=== PATIENT | female | born 1960 | race Caucasian/White ===

== ENCOUNTER 2016-12-21 11:32 | Inpatient (IN) | payer MEDICARE ==
[~2016-12-21] VITALS: Ht 165.1 cm; Wt 56.0 kg
--- NOTE | ~2016-12-21 | EKG ---
PATIENT: JOSE SMALL UNIT #: [id number] Ventricular Rate: 92 BPM Atrial Rate: 92 BPM P-R Interval: 126 ms QRS Duration: 78 ms Q-T Interval: 338 ms QTC Calculation(Bezet): 417 ms P [place]: 80 degrees Calculated R [place]: -53 degrees Calculated T [place]: 91 degrees Diagnosis Line: Normal sinus rhythm Diagnosis Line: Left axis deviation Diagnosis Line: Nonspecific ST and T wave abnormality Diagnosis Line: Abnormal ECG Diagnosis Line: When compared with ECG of 31-MAR-2014 19:29, Diagnosis Line: Nonspecific T wave abnormality now evident in Diagnosis Line: Inferior leads Diagnosis Line: Confirmed by NATALYA SUÁREZ MD ([id number]) on Diagnosis Line: 12/21/2016 5:11:32 PM INTERPRETING MD: KAMINI DOLL
--- NOTE | ~2016-12-21 | CR72 ---
[facility] A Service of [facility] & [facility] RADIOLOGY TEXT RESULTS PATIENT: JOSE SMALL LOCATION: [facility] : 60 UNIT #: [id number] AGE: [address]: Sukhdev Ribeiro MD SEX: F ORDER DR: [id number] [facility] [address] [place], [place] [address] [id number] P MR#: [id number] Acc #: [id number] NAME: JOSE SMALL : 1960 SEX: F STUDY DATE/TIME: 12/21/2016 13:39 UNIT: [facility] ROOM: STUDY DESCRIPTION: CR Chest Single View Portable Attending Physician: Sukhdev Ribeiro M.D. Ordering Physician: Sukhdev Ribeiro M.D. Primary Care Physician: Shelli Hdz M.D. MEDICAL IMAGING REPORT This report is preliminary unless electronic signature is present EXAM Chest portable 12/21/2016 1339 hours. HISTORY 56-year-old woman with complaint of cough and shortness of air today. History of COPD and coronary artery disease COMPARISON 08/18/2016 FINDINGS Portable upright chest demonstrates normal heart size. There is atherosclerotic change of the aorta with normal aortic contours. There are calcified granulomatous nodes at the sandra. There is emphysematous change in the lungs. There is new airspace density in the right lower lobe consistent with pneumonia. This is contiguous with a somewhat nodular-appearing area in the right midlung measuring up to 1.4 cm. This is felt likely to represent airspace change rather than a developing nodule or mass. Followup chest radiographs post treatment is recommended. IMPRESSION 1. There is emphysematous change with new diffuse right lower lobe airspace change most consistent with pneumonia. 2. There is a 1.4 cm slightly poorly defined airspace nodule in the right mid lung at the superior margin of the area of pneumonia. This is felt likely to represent infection but followup chest radiographs post treatment to reassess this nodular area is recommended as an underlying nodule or mass cannot be excluded. STAT * RESULT Dictated by... [facility] A Service of [facility] & [facility] RADIOLOGY TEXT RESULTS [facility]: [id number] [birth year] UNIT #: [id number] AGE: [address]: Sukhdev Ribeiro MD SEX: F ORDER DR: Adilia Siegel M.D. THIS IS AN ELECTRONICALLY VERIFIED REPORT Adilia Siegel M.D. at 12/21/2016 2:35 PM BRODY/betsy TD: 12/21/2016 14:04 JOB #: [id number] MEDICAL IMAGING REPORT Page 1 of 1 COPY
--- NOTE | ~2016-12-21 | CT4 ---
[facility] A Service of [facility] & [facility] RADIOLOGY TEXT RESULTS PATIENT: JOSE SMALL LOCATION: [facility] 323- : 60 UNIT #: [id number] AGE: [address]: Nichol Hills MD SEX: F ORDER DR: [id number] [facility] [address] [place], [place] [address] [id number] I MR#: [id number] Acc #: [id number] NAME: JOSE SMALL : 1960 SEX: F STUDY DATE/TIME: 12/21/2016 16:19 UNIT: A U ROOM: [facility] STUDY DESCRIPTION: CT Abd and Pelv Wo Cont Attending Physician: Reyna Ribeiro M.D. Ordering Physician: Sukhdev Ribeiro M.D. Primary Care Physician: Shelli Hdz M.D. MEDICAL IMAGING REPORT This report is preliminary unless electronic signature is present EXAM CT abdomen and pelvis 12/21/2016. HISTORY Pain. Patient had a stroke 2001. Unable to raise left arm above head. This CT exam was performed with one or more of the following radiation dose reduction techniques: automatic exposure control, adjustment of mA and/or kV according to patient size, and iterative reconstruction. CT of the abdomen and pelvis performed without administration of oral or intravascular contrast. Please see today's dedicated CT of the chest for full discussion of findings above the diaphragm. Lung bases show emphysema. Airspace disease at the bilateral lung bases significantly more pronounced on the right than the left. Appearance suggests bibasilar pneumonia, right greater than left. Given distribution, correlate with any clinical concern for aspiration. The visualized inferior heart and pericardium are unremarkable. Liver, gallbladder, spleen, pancreas, adrenal glands unremarkable. Right kidney and ureter unremarkable. There is a punctate nonobstructing calculus in the mid left kidney. There are renovascular calcifications in the left hilar region. No left-sided hydronephrosis, hydroureter, ureteral calculus or secondary sign of recent stone passage. CT PELVIS: No inguinal adenopathy. The urinary bladder, uterus, adnexal regions show no acute abnormality. There is no free fluid in the pelvis. No pelvic or retroperitoneal adenopathy. Distal esophagus, stomach, small bowel, appendix unremarkable. Colon shows uncomplicated descending and sigmoid colon diverticulosis. Atherosclerotic arterial calcifications. No aneurysm. No acute-appearing bony abnormality. IMPRESSION [facility]. [facility] A Service of [facility] & [facility] RADIOLOGY TEXT RESULTS PATIENT: JOSE SMALL LOCATION: A 323- : 60 UNIT #: [id number] AGE: [address]: Nichol Hills MD SEX: F ORDER DR: 1. There is no clearly acute abnormality within the abdomen or pelvis. The patient does have a punctate sand-like nonobstructing calculus in the mid left kidney. There are renovascular calcifications elsewhere. No hydronephrosis or secondary sign of recent stone passage. 2. Gallbladder, pancreas, appendix normal. 3. Uncomplicated distal colonic diverticulosis. 4. Meters adnexal regions unremarkable. 5. Bibasilar airspace disease more pronounced on the right than the left most consistent with bibasilar pneumonia right greater than left. Given distribution, correlate with any clinical concern for aspiration. Followup to complete radiographic resolution is recommended. 6. Underlying emphysema. 7. See remainder of incidental findings in body of report above. Dictated by... Clayton Gray M.D. THIS IS AN ELECTRONICALLY VERIFIED REPORT Clayton Gray M.D. at 12/22/2016 6:04 PM YVONNE/justus TD: 12/22/2016 04:18 JOB #: [id number] MEDICAL IMAGING REPORT Page 1 of 1 COPY
--- NOTE | ~2016-12-21 | CT16 ---
[facility] A Service of [facility] & [facility] RADIOLOGY TEXT RESULTS PATIENT: JOSE SMALL LOCATION: [facility] 323- : 60 UNIT #: [id number] AGE: [address]: APOORVA RIBEIRO MD SEX: F ORDER DR: [id number] [facility] [address] [place], [place] [address] [id number] I MR#: [id number] Acc #: [id number] NAME: JOSE SMALL : 1960 SEX: F STUDY DATE/TIME: 12/21/2016 16:32 [facility] STUDY DESCRIPTION: CT Angio Chest for PE Attending Physician: Apoorva Ribeiro M.D. Ordering Physician: Sukhdev Ribeiro M.D. Primary Care Physician: Shelli Hdz M.D. MEDICAL IMAGING REPORT This report is preliminary unless electronic signature is present EXAM CT chest with contrast, PE protocol. INDICATIONS Shortness of breath since this morning. Elevated D-dimer. TECHNIQUE CT scan of the chest was performed following the administration of IV contrast, using the pulmonary embolism protocol. Coronal and sagittal reformatted images were obtained. This CT exam was performed with one or more of the following radiation dose reduction techniques: Automatic exposure control, adjustment of mA and/or kV according to patient size, and iterative reconstruction. Comparison is made with 03/31/2014. FINDINGS Motion artifact does limit the exam. The distal segmental and subsegmental arteries in the lower lobes are not adequately visualized due to motion artifact. Within the limitations of the study, there is no evidence for pulmonary embolism. There are bilateral lower lobe consolidations right greater than left, most consistent with pneumonia. Follow up to clearing is recommended. Emphysema. There is increasing density in the right apex region, but this is associated with traction bronchiectasis and is felt to probably represent scarring. Attention to this area on followup CT is recommended, however to ensure its stability. There is a mildly prominent subcarinal lymph node and there is also a mildly prominent hilar lymph node on the right. These are likely reactive, given the findings in the lungs. There is no pleural effusion. Limited imaging of the upper abdomen is unremarkable. The bone windows are unremarkable. IMPRESSION 1. Motion artifact limited study, which limits evaluation of the distal segmental and subsegmental branches of the lower lobes. [facility] A Service of [facility] RADIOLOGY TEXT RESULTS PATIENT: JOSE SMALL LOCATION: [facility] 323-01 : 60 UNIT #: [id number] AGE: [address]: APOORVA RIBEIRO MD SEX: F ORDER DR: Within the limitations of the study, there is no evidence for pulmonary embolism. 2. Bilateral lower lobe parenchymal consolidations right greater than left, most consistent with pneumonia. 3. Emphysema. 4. Increasing density and bronchiectasis in the right apex felt to probably represent scarring; however, attention on followup studies to this area is recommended to ensure stability. 5. I would recommend a follow-up chest CT in 2-3 months to document clearing of the lower lobe pneumonias. Dictated by... London Bucio M.D. THIS IS AN ELECTRONICALLY VERIFIED REPORT London Bucio M.D. at 12/22/2016 7:10 AM GABRIEL/shreya TD: 12/22/2016 02:47 JOB #: [id number] MEDICAL IMAGING REPORT Page 1 of 1 COPY
--- NOTE | ~2016-12-21 | HP ---
Unit #: [id number] #: [id number] Patient: JOSE SMALL [id number] [address] [address] [id number] I MR#: [id number] NAME: JOSE SMALL. ROOM: 74192 Age: 56 Sex: F Admission Date: 12/21/2016 : 1960 Attending Physician: Apoorva Ribeiro M.D. Primary Care Physician: Shelli Hdz M.D. HISTORY AND PHYSICAL CHIEF COMPLAINT Right flank pain since this morning. HISTORY OF PRESENT ILLNESS The patient is a 56-year-old female with a history of COPD, coronary artery disease, and history of CVA, brought to the emergency room complaining of right flank pain since this morning. The patient stated that patient woke up this morning to go to the bathroom and noted spasms and right flank pain. The patient had a workup in the emergency room and was found to have a right lower lobe pneumonia. The patient stated that patient has been coughing for the last three days, yellowish mucus in color, and also positive for shortness of breath. The patient stopped smoking two packs per day for the last two years. Patient denies any fevers, chills, nausea, or vomiting. The patient is being admitted for the above reasons. PAST MEDICAL HISTORY 1. Coronary artery disease. 2. Chronic obstructive pulmonary disease. 3. Cerebrovascular accident. 4. Skin cancer. PAST SURGICAL HISTORY 1. Skin cancer. 2. Left thumb repair. 3. Tubal ligation. HOME MEDICATIONS 1. Plavix. 2. Cardizem. 3. Imdur. 4. Singulair. 5. Breo. 6. Pravachol. 7. Lexapro. 8. ProAir. ALLERGIES Penicillin and codeine. SOCIAL HISTORY Quit smoking two years ago. Denies alcohol or any illicit drug abuse. Unit #: [id number] #: [id number] Patient: JOSE SMALL FAMILY HISTORY Father underwent angioplasty and stent insertion in his late 60s. REVIEW OF SYSTEMS Positive for shortness of breath, positive for cough, and positive for flank pain. Denies any fevers, chills, nausea, or vomiting, and denies any chest pain. Other systems were reviewed and are negative. PHYSICAL EXAMINATION GENERAL: Patient is lying in bed not in acute distress. VITAL SIGNS: Temperature 97.1, pulse 99, respiratory rate 24, blood pressure 99/56, and saturating 99% on 2 liters. HEENT: Head atraumatic, normocephalic. Pupils equal, round, and reactive to light and accommodation. Dry mucous membranes. NECK: Supple. LUNGS: Decreased air entry at the bases. Positive for rhonchi and wheezing. HEART: Regular rate and rhythm. ABDOMEN: Soft. Positive bowel sounds. EXTREMITIES: No cyanosis, no clubbing. NEUROLOGIC: Alert, awake, and oriented. DIAGNOSTIC STUDIES LABORATORY: Urinalysis shows negative bacteria. WBC 13.5, hemoglobin 12.1, hematocrit 37.4, and platelets 237,000. Sodium 137, potassium 3.7, chloride 107, bicarb 23, glucose 130, BUN 16, creatinine 0.7, AST 25, and ALT 20. Lipase 32. D-dimer is 1143. BNP 35. Troponin is less than 0.05. IMAGING: Chest x-ray shows emphysematous change with new diffuse right lower lobe airspace changes most consistent with pneumonia. There is a 1.4 cm slightly poorly defined airspace nodule in the right mid lung at the superior margin of the area of the pneumonia. This is felt likely to represent infection, but followup chest radiographs post treatment to reassess this nodular area is recommended as an underlying nodule or mass cannot be excluded. ASSESSMENT 1. Right lower lobe pneumonia. 2. Emphysema. 3. Probable sepsis. 4. History of cerebrovascular accident. PLAN Admit to inpatient with telemetry. Continue with IV fluids per sepsis protocol. Continue with IV antibiotics with levofloxacin. Check lactic acid if not done in the ER, and initiate the sepsis protocol if positive. Check sputum culture. DuoNebs. Further recommendations will follow. Dictated by Brielle Vital TD: 12/21/2016 21:21 JOB #: [id number] Unit #: [id number] #: [id number] Patient: JOSE SMALL HISTORY AND PHYSICAL Page 1 of 1 X APOORVA RIBEIRO MD HISTORY AND PHYSICAL
--- NOTE | ~2016-12-21 | DS ---
Unit #: [id number] #: [id number] Patient: JOSE ROSENBAUM [id number] [address] [address] [id number] I MR#: [id number] NAME: JOSE ROSENBAUM ROOM: 220 Age: 56 Sex: F Admission Date: 12/21/2016 : 1960 Discharge Date: 12/23/2016 Attending Physician: Nichol Hills M.D. Primary Care Physician: Shelli Hdz M.D. DISCHARGE SUMMARY PRINCIPAL DIAGNOSES 1. Sepsis secondary to bibasilar community-acquired pneumonia. 2. Acute exacerbation of chronic obstructive pulmonary disease. 3. Steroid-induced leukocytosis. 4. Coronary artery disease. 5. History of stroke with severe left lower extremity muscle spasm. 6. Normocytic anemia. 7. Hyperlipidemia. 8. Depression. CONSULTANTS None. PROCEDURES 1. Chest x-ray on December 21, 2016, with right lower lobe infiltrate, emphysematous change noted. There is a 1.4 cm airspace nodule in the right mid lung at the superior margin of the pneumonia. 2. CT scan of the abdomen and pelvis without contrast on December 21, 2016, with no acute abnormality between the abdomen and pelvis. Bibasilar airspace disease, greater on right than left, is noted. Underlying emphysema noted. 3. CT angiogram of the chest on December 21, 2016, which was negative for PE. Bilateral lower lobe consolidation, right greater than left. Emphysema changes noted. Bronchiectasis in the right apex is consistent with scarring. CLINICAL HISTORY/HOSPITAL COURSE Ms. Rosenbaum is a nice 56-year-old female who presents to the emergency department with right flank pain. The patient had been having cough at home. She was afebrile in the emergency department. Chest x-ray in the emergency department reveals right lower lobe pneumonia. The patient was found to have associated leukocytosis with bandemia. She was not hypoxic. She was subsequently admitted. The patient was placed on broad spectrum antibiotics. Causative organism was not identified but her leukocytosis is improving and she remained afebrile. We are going to transition to oral antibiotics. Of note, the patient received a dose of Solu-Medrol in the emergency department and felt significantly better. She did have an associated steroid-induced leukocytosis as a result. Today, she is having a very mild amount of wheezing but is still not hypoxic. I am going to give her a dose of Solu-Medrol here and place her on a tapering dose of oral prednisone at home. Unit #: [id number] #: [id number] Patient: JOSE ROSENBAUM The patient's other chronic conditions remained stable and she will be discharged home today. DISCHARGE CONDITION Stable. DISCHARGE STATUS Discharge to home. DISCHARGE MEDICATIONS 1. ProAir HFA, two puffs four times daily p.r.n. for shortness of breath. 2. Lexapro 10 mg daily. 3. Pravachol 10 mg daily. 4. Cardizem 30 mg daily. 5. Breo Ellipta 100/25 mcg, one puff daily. 6. Singulair 10 mg daily. 7. Plavix 75 mg daily. 8. Zanaflex 4 mg p.o. q.6 hours p.r.n. for muscle spasm, number given 35. 9. Imdur ER 30 mg daily. 10. Omnicef 300 mg p.o. b.i.d. for seven days. 11. Prednisone 10 mg tablets, four tablets a day for three days, then three tablets for three days, then two tablets for three days, then one tab for three days, then discontinue. DISCHARGE INSTRUCTIONS Patient was instructed to follow a heart healthy diet. She can increase her activity as tolerated. FOLLOWUP Patient will follow up with Dr. Hdz in one to two weeks. Dictated by... Nichol Hills M.D. DANIEL/ramya TD: 12/24/2016 12:17 JOB #: [id number] DISCHARGE SUMMARY Page 1 of 1 X Nichol Hills MD DISCHARGE SUMMARY
[~2016-12-21 11:32] MED LIST: ATENOLOL50 MG PO; BAYER ASPIRIN325 M1 PO; IBUPROFEN PO; LIVALO4 MG PO; NITROQUICK0.4 MG SL; PRIMATINE; PROTONIX PO; PROVENTIL17 GM INH; RANITIDINE HCL300 M1 PO; [UNRECOGNIZED DRUG - REMARK]
[2016-12-21] MEDS ORDERED: IMDUR PO (12:38)
[2016-12-21] MEDS ORDERED: PATIENT'S PHARMACY (12:38)
[2016-12-21] MEDS ORDERED: CARDIZEM30 M1 PO (12:38)
[2016-12-21] MEDS ORDERED: CLOPIDOGREL75 MG PO (12:38)
[2016-12-21] MEDS ORDERED: SINGULAIR PO (12:38)
[2016-12-21] MEDS ORDERED: BREO ELLIPTA 11 EACH INH (12:38)
[2016-12-21] MEDS ORDERED: LEXAPRO PO (12:39)
[2016-12-21] MEDS ORDERED: PRAVACHOL PO (12:39)
[2016-12-21] MEDS ORDERED: PROAIR HFA8.5 GM INH (12:39)
[2016-12-21 13:03] LABS: URINE SOURCE CLEAN CATCH
[2016-12-21 13:21] LABS: URINE APPEARANCE CLEAR; URINE BILIRUBIN NEG (NEG); URINE BLOOD NEG (NEG); URINE COLOR YELLOW; URINE GLUCOSE NEG (NEG); URINE KETONE NEG (NEG); URINE LEUKOCYTE ESTERASE NEG (NEG); URINE NITRATE NEG (NEG); URINE PROTEIN NEG (NEG); URINE SPECIFIC GRAVITY 1.023 (1.003-1.035); URINE UROBILINOGEN 0.2 MG/DL (NEG)
[2016-12-21 13:26] LABS: CULTURE INDICATED? NO
[2016-12-21 14:06] LABS: BASOPHIL% 0.2 % (0-2.5); EOSINOPHIL% 0.1 % (0.0-7.0); HEMATOCRIT 37.4 % (35.0-45.0); HEMOGLOBIN 12.1 gm/dL (12.0-16.0); LYMPHOCYTE# 0.4 X10e3 (1.0-3.5); LYMPHOCYTE% 2.8 % (17.0-45.0); MEAN CELL VOLUME 85.7 FL (83-96); MEAN CORPUSCULAR HEMOGLOBIN 27.7 PG (28-34); MEAN CORPUSCULAR HGB CONC 32.3 g/dL (30-36); MEAN PLATELET VOLUME 7.7 FL (6.5-11.5); MONOCYTE# 0.7 X10e3 (0-1.0); MONOCYTE% 5.1 % (3.0-12.0); NEUTROPHIL# 12.4 X10e3 (1.5-7.1); NEUTROPHIL% 91.8 % (40-75); PLATELET COUNT 237 X10e3 (140-420); RED BLOOD COUNT 4.36 X10e (3.90-5.30); RED CELL DISTRIBUTION WIDTH 16.4 % (11.0-15.5); WHITE BLOOD COUNT 13.5 X10e3 (4.0-10.5)
[2016-12-21 14:07] LABS: DIFF IND NO
[2016-12-21 14:12] LABS: ALBUMIN SERUM 4.1 g/dL (3.5-5.0); BILIRUBIN, DIRECT 0.1 mg/dL (0.0-0.2); BILIRUBIN,INDIRECT 0.5 mg/dL (0.0-0.9); BILIRUBIN,TOTAL 0.6 mg/dL (0.2-2.0); BUN/CREATININE RATIO 22.85; CALCIUM SERUM 9.2 mg/dL (8.4-10.2); CREATININE SERUM 0.7 mg/dL (0.6-1.4); GLOM FILT RATE Estimated 96.9 mL/min (>60); POTASSIUM 3.7 mmol/L (3.5-5.1); PROTEIN TOTAL SERUM 7.2 g/dL (6.0-8.3)
[2016-12-21 15:36] LABS: POC - CKMB <1.0 ng/mL (0.0-7.9); POC - TROPONIN <0.05 ng/mL (<=0.05)
[2016-12-21 18:54] LABS: POC - CKMB <1.0 ng/mL (0.0-7.9); POC - TROPONIN <0.05 ng/mL (<=0.05)
[2016-12-22 05:41] LABS: BASOPHIL% 0.1 % (0-2.5); HEMATOCRIT 34.7 % (35.0-45.0); HEMOGLOBIN 11.1 gm/dL (12.0-16.0); LYMPHOCYTE# 0.7 X10e3 (1.0-3.5); LYMPHOCYTE% 3.5 % (17.0-45.0); MEAN CELL VOLUME 85.5 FL (83-96); MEAN CORPUSCULAR HEMOGLOBIN 27.3 PG (28-34); MEAN CORPUSCULAR HGB CONC 31.9 g/dL (30-36); MEAN PLATELET VOLUME 7.9 FL (6.5-11.5); MONOCYTE# 0.7 X10e3 (0-1.0); MONOCYTE% 3.8 % (3.0-12.0); NEUTROPHIL% 92.6 % (40-75); PLATELET COUNT 220 X10e3 (140-420); RED BLOOD COUNT 4.06 X10e (3.90-5.30); RED CELL DISTRIBUTION WIDTH 16.5 % (11.0-15.5); WHITE BLOOD COUNT 19.5 X10e3 (4.0-10.5)
[2016-12-22 05:44] LABS: DIFF IND YES
[2016-12-22 05:47] LABS: BUN/CREATININE RATIO 27.77; CALCIUM SERUM 9.1 mg/dL (8.4-10.2); CREATININE SERUM 0.9 mg/dL (0.6-1.4); GLOM FILT RATE Estimated 71.5 mL/min (>60); POTASSIUM 4.3 mmol/L (3.5-5.1)
[2016-12-22 12:52] LABS: ANISOCYTOSIS SL; PLATELET ESTIMATE NORMAL (NORMAL)
[2016-12-23 05:33] LABS: HEMOGLOBIN 9.8 gm/dL (12.0-16.0); MEAN CELL VOLUME 85.8 FL (83-96); MEAN CORPUSCULAR HGB CONC 31.5 g/dL (30-36); MEAN PLATELET VOLUME 7.5 FL (6.5-11.5); RED BLOOD COUNT 3.61 X10e (3.90-5.30); RED CELL DISTRIBUTION WIDTH 16.4 % (11.0-15.5); WHITE BLOOD COUNT 12.9 X10e3 (4.0-10.5)
[2016-12-23 06:23] LABS: BUN/CREATININE RATIO 25.55; CREATININE SERUM 0.9 mg/dL (0.6-1.4); GLOM FILT RATE Estimated 71.5 mL/min (>60); POTASSIUM 3.7 mmol/L (3.5-5.1)
[2016-12-23] MEDS ORDERED: OMNICEF300 MG PO (15:51)
[2016-12-23] MEDS ORDERED: PREDNISONE (15:51)
[2016-12-23] MEDS ORDERED: ZANAFLEX4 M1 PO (15:52)
== END 2016-12-23 16:18 | disposition home or self-care (01) | DRG 871 ==
LOC: CED 11:32 → CEDOF 19:38 → C3A PCU 19:38 → C2A 19:38 → C3A PCU 22:07 → C2A 12-22 18:45
PROVIDERS: Emergency Medicine; Internal Medicine
PROC: B32TYZZ Computerized Tomography (CT Scan) of Left Pulmonary Artery using Other Contrast (ICD-10-PCS; principal; 2016-12-21)
PROC: B32SYZZ Computerized Tomography (CT Scan) of Right Pulmonary Artery using Other Contrast (ICD-10-PCS; 2016-12-21)
DX: A41.9 Sepsis, unspecified organism (principal); J18.9 Pneumonia, unspecified organism; J96.01 Acute respiratory failure with hypoxia; J44.0 Chronic obstructive pulmonary disease with (acute) lower respiratory infection; J44.1 Chronic obstructive pulmonary disease with (acute) exacerbation; R10.9 Unspecified abdominal pain; I25.10 Atherosclerotic heart disease of native coronary artery without angina pectoris; Z86.73 Personal history of transient ischemic attack (TIA), and cerebral infarction without residual deficits; Z85.828 Personal history of other malignant neoplasm of skin; Z98.51 Tubal ligation status; Z87.891 Personal history of nicotine dependence; Z88.0 Allergy status to penicillin; D72.828 Other elevated white blood cell count; T38.0X5A Adverse effect of glucocorticoids and synthetic analogues, initial encounter; D64.9 Anemia, unspecified; F32.9 Major depressive disorder, single episode, unspecified; E78.5 Hyperlipidemia, unspecified
CPT/HCPCS: 36415; 71010; 71275; 74176; 80048; 80076; 81003; 82553; 83605; 83690; 83880; 84484; 85025; 85027; 85379; 87070; 87205; 87899; 93005; 94640; 94760; 96365; 96367; 96375; 97116; 97163; 97166; 97530; 99285; G8978-GP; G8979-GP; G8987-GO; G8988-GO; G8989-GO; J0456; J0696; J1650; J1885; J1956; J2930; J3260; J3370; Q9967